=== PATIENT | female | born 1950 | race Two or more races ===

== ENCOUNTER 2021-10-13 12:52 | Emergency (ER) | payer OTHER ==
[2021-10-13 13:06] VITALS: BP 128/49; PULSE 74; TEMP 98.4; BMI 25.0
[2021-10-13] MEDS ORDERED: ACETAMINOPHEN 500 MG TABLET (FP) PO ONE (13:19)
[2021-10-13] MEDS ORDERED: ACETAMINOPHEN 325 MG TABLET (FP) ONE (13:33)
== END 2021-10-13 14:41 | disposition home or self-care (01) ==
LOC: FER 12:52
DX: M79.671 Pain in right foot (principal)
CPT/HCPCS: 73610-TC-RT-FY; 73630-TC-RT-FY; 99283-25